=== PATIENT | male | born 1980 | race Caucasian/White ===

== ENCOUNTER 2022-05-31 17:42 | Emergency (ER) | payer OTHER, SELFPAY ==
[2022-05-31 18:04] VITALS: BP 158/83; PULSE 91; RESP 16; TEMP 36.4; O2SAT 96; BMI 28.2
--- NOTE | 2022-05-31 18:21 | USR_ITS ---
PROCEDURE INFORMATION: Exam: US Duplex Left Lower Extremity Veins, Limited Exam date and time: 05/31/2022 6:27 PM Age: 42 years old Clinical indication: Leg, lower; Patient HX: Patient fell asleep in a recliner that was compressing the posterior aspect of his legs adjacent to the posterior knee joint. When he wakened, he noted pain in the left popliteal and posterior calf regions. This pain has continued now for 5 days. ; Additional info: Leg swelling TECHNIQUE: Imaging protocol: Real-time Duplex ultrasound of the Left Lower Extremity with 2-D whitfield scale, color Doppler flow and spectral waveform analysis with image documentation. Limited exam focused on the left lower extremity veins. COMPARISON: No relevant prior studies available. FINDINGS: Left deep veins: Unremarkable. The common femoral, proximal profunda femoral, femoral, posterior tibial and peroneal veins are patent without thrombus. Normal compressibility, augmentation response and Doppler waveforms. Left superficial veins: Hypoechoic, occlusive thrombus throughout the lesser saphenous vein. Cannot exclude slight extension into the popliteal vein. Saphenofemoral junction is patent without thrombus. Soft tissues: Unremarkable. US/[place] [id number] IMPRESSION: Hypoechoic, occlusive thrombus throughout the lesser saphenous vein. Cannot exclude slight extension into the popliteal vein.
--- NOTE | 2022-05-31 18:29 | ED_ITS ---
HPI - Extremity Problem General: Chief complaint: Extremity Injury, Lower Stated complaint: Left leg pain Time Seen by Provider: 05/31/22 18:18 Source: patient Mode of arrival: ambulatory Limitations: no limitations History of Present Illness: 42-year-old male who states that he had sat in a recliner a week ago he did sit there for an extended period of time he states that since he has been having some pain to his left posterior knee. He states had a knot that he feels likes in his knee and also some slight swelling to his calf. He was concerned he may have a DVT denies any fever denies any difficulty walking has no other complaints at this time. Associated symptoms: Deny chest pain, fever(s) or rash Review of Systems Const: Denies: fever(s), chills, body aches or change in appetite Eyes: Denies: blurry vision or eye discomfort ENMT: Denies: throat pain or dental pain Card: Denies: chest pain Resp: Denies: dyspnea GI: Denies: abdominal pain, nausea, vomiting or diarrhea : Denies: dysuria Musc: Reports: extremity pain Skin/Breast: Denies: rash Neuro: Denies: headache(s) Psych: Denies: depression Hiren/Lymph: Denies: easy bruising All/Imm: Denies: urticaria PFSH ED PFSH: Medical History (Updated 05/31/22 @ 18:56 by Dutch Peoples MD) No pertinent past medical history Social History (Updated 05/31/22 @ 18:31 by Dutch Peoples MD) Substance/Drug Use: never Physical Exam Const: COMMON NORMALS: no acute distress, patient oriented x3 and healthy appearing HENMT: COMMON NORMALS: normocephalic and atraumatic HEAD & SCALP: normocephalic and atraumatic Eye: COMMON NORMALS: conjunctivae normal CONJUNCTIVA: Yes conjunctivae normal Neck/C-Spine: COMMON NORMALS: full ROM and supple Chest: COMMONS NORMALS: normal inspection of the chest Resp: COMMON NORMALS: normal respiratory effort Cardio: COMMON NORMALS: regular rate and No murmurs present (Cardio) RATE: regular rate GI: INSPECTION: Yes normal to inspection Extremity: COMMON NORMALS: full ROM NARRATIVE EXTREMITY EXAM: Slight swelling to left calf no tenderness some slight swelling to posterior knee Neuro: COMMON NORMALS: patient oriented x3, moves all extremities and no focal motor deficits Psych: COMMON NORMALS: mental status grossly normal, Normal thought process present and cooperative THOUGHT PROCESS: Normal thought process present Skin: COMMON NORMALS: no rashes or lesions noted and no wounds GENERAL SKIN EXAM: no rashes or lesions noted Course Vital Signs: Vital signs: Vital Signs Temperature 97.5 F L 05/31/22 18:04 Pulse Rate 91 05/31/22 18:04 Respiratory Rate 16 05/31/22 18:04 Blood Pressure 158/83 05/31/22 18:04 Pulse Oximetry 96 05/31/22 18:04 Oxygen Delivery Me thod 05/31/22 18:04 MDM - Extremity (Nontraumatic) Medical Decision Making Patient presents here with left leg pain he does have a DVT by ultrasound we will start on blood thinners he is to follow-up with PCP he is return if worsening he understands agrees to plan. Discharge Plan Discharge Patient Disposition: Home Clinical Impression: DVT (deep venous thrombosis) Qualifiers: DVT location: lower extremity Affected thrombotic vein of extremity: unspecified vein of extremity Chronicity: acute Laterality: left Qualified Code(s): I82.402 - Acute embolism and thrombosis of unspecified deep veins of left lower extremity Prescriptions: New Eliquis 5 mg tablet 10 mg PO BID 7 Days Qty: 28 0RF Rx Instructions: take 10mg bid for first week Eliquis 5 mg tablet 5 mg PO BID Qty: 60 0RF Rx Instructions: start after initial loading dose 7 days later Discharge Orders: Discharge ED (Routine); Ordered 05/31/22 Ordered By: Dutch Peoples Discharge Diet: Advance as tolerated Discharge Activity: Resume usual activity Patient Instructions: Deep Vein Thrombosis (ED) Coding Level of Care Code ED Toolroom Keeper for Leon Fwd Exam Comprehensive
--- NOTE | 2022-05-31 19:15 | PC.NURSE ---
No swelling or redness visualized. Pedal pulses strong. Lung sounds clear bilat. Pt denies chest pain or dyspnea. Report given to Andrew.
[2022-05-31] MEDS: apixaban 5 mg Tablet 10 MG PO (19:31)
[2022-05-31 19:32] VITALS: BP 147/78; PULSE 87; RESP 16; TEMP 36.4; O2SAT 97
== END 2022-05-31 19:34 | disposition home or self-care (01) ==
PROVIDERS: Emergency Provider Emergency Medicine
DX: I82.402 Acute embolism and thrombosis of unspecified deep veins of left lower extremity (principal)
CPT/HCPCS: 93971; 99284

== ENCOUNTER → 2022-12-28 11:20 | Outpatient (BNVA) | payer OTHER, SELFPAY | PROVIDERS: PCP Registered Nurse; Visit Provider Registered Nurse | DX: E11.9 Type 2 diabetes mellitus without complications (principal); I10 Essential (primary) hypertension; E78.5 Hyperlipidemia, unspecified | CPT/HCPCS: 80053; 80061; 83036; 83721; 85025 ==

== ENCOUNTER → 2023-03-11 09:06 | Outpatient (BNVA) | payer OTHER, SELFPAY | PROVIDERS: PCP Registered Nurse; Visit Provider Internal Medicine | DX: E11.9 Type 2 diabetes mellitus without complications (principal) | CPT/HCPCS: 80053; 80061; 82044; 83036; 83721 ==

== ENCOUNTER → 2024-07-05 11:57 | Outpatient (BNVA) | payer OTHER, SELFPAY | PROVIDERS: PCP Registered Nurse; Visit Provider Internal Medicine | DX: E78.5 Hyperlipidemia, unspecified (principal) | CPT/HCPCS: 36415; 80053; 80061; 82044; 83036; 83721; 84681; 86337; 86341 ==

== ENCOUNTER → 2025-07-04 13:58 | Outpatient (BNVA) | payer OTHER, SELFPAY | PROVIDERS: PCP Family Medicine; Visit Provider Family Medicine | DX: M25.511 Pain in right shoulder (principal) | CPT/HCPCS: 73030 ==

== ENCOUNTER → 2025-09-28 13:42 | Outpatient (BNVA) | payer OTHER, SELFPAY | PROVIDERS: PCP Family Medicine; Visit Provider Family Medicine | DX: E11.9 Type 2 diabetes mellitus without complications (principal) | CPT/HCPCS: 80053; 83036 ==